=== PATIENT | male | born 1995 | race Caucasian/White ===

== ENCOUNTER 2024-09-05 09:59 | Emergency (ER) | payer OTHER ==
[2024-09-05 10:16] VITALS: TEMP 99.7
[2024-09-05] MEDS ORDERED: DUONEB 0.5-3 MG/3 ml Neb IH ONE (10:28)
--- NOTE | 2024-09-05 10:28 | ERPHSYRPT ---
- History of Present Illness Time Seen by Provider: 09/05/24 10:12 Source: patient Exam Limitations: no limitations Patient Subjective Stated Complaint: C/O cough, sorethroat, and fever since Monday Triage Nursing Assessment: Patient ambulated back to ER without difficulties. He is alert and oriented. He has a cough that is non-productive during the triage but states it is productive at home with green sputum. Skin is hot to touch. Patient does not appear SOB at this time. Physician History: Patient is a 28-year-old male whose had 3 days of cough, body aches sore throat and congestion, with more productive cough for last 2 days. Patient has not tried thing has been successful with symptomatic relief for symptoms. He was seen at an outside clinic and diagnosed with pneumonia, given prescriptions for doxycycline and benzoate Perles, but after discussion with his physician, is recommend he come to the emergency room further evaluation. Patient has not any episodes of vomiting, no abdominal pain, no back pain, no focal weakness or any issues with diarrhea, black or red stools or any blood in his urine or any new side or back pain. Timing/Duration: day(s) (3) Cough Quality/Degree: moderate, productive cough, sputum (Yellow-green) Possible Cause: no prior episodes Modifying Factors: Improves With: nothing Associated Symptoms: chills, cough, dizziness, muscle aches, nasal congestion, nasal drainage, sore throat, No chest pain/soreness, No earache, No facial pain, No headache, No lightheadedness, No shortness of breath Allergies/Adverse Reactions: No Known Drug Allergies Allergy (Verified 09/05/24 10:06) Home Medications: Insulin Aspart [NovoLOG Insulin] 100 units SQ UD 06/22/15 [History] Hx Tetanus, Diphtheria Vaccination/Date Given: Yes Hx Influenza Vaccination/Date Given: No Hx Pneumococcal Vaccination/Date Given: No Immunizations Up to Date: Yes Travel Risk - International Travel Have you traveled outside of the country in past 3 weeks: No - Emerging Infectious Disease Are you exhibiting symptoms associated with any current EIDs: Yes Symptoms: Cough: New Onset, Fever, Headaches/Body Aches/, Shortness of Breath - Review of Systems Constitutional: Fatigue, Malaise, No Fever, No Chills, No Other Eyes: No Symptoms, No Eye Pain, No Vision Changes Ears, Nose, & Throat: No Symptoms, Nose Congestion, Nose Discharge, Throat Pain, No Ear Discharge, No Mouth Pain, No Throat Swelling Respiratory: Cough, No Dyspnea Cardiac: No Chest Pain, No Edema, No Syncope Abdominal/Gastrointestinal: No Abdominal Pain, No Nausea, No Vomiting, No Diarrhea Genitourinary Symptoms: No Dysuria Musculoskeletal: No Back Pain, No Neck Pain Skin: No Rash Neurological: No Dizziness, No Focal Weakness, No Sensory Changes Psychological: No Symptoms Endocrine: No Symptoms Hematologic/Lymphatic: No Easy Bleeding, No Easy Bruising All Other Systems: Reviewed and Negative - Past Medical History Pertinent Past Medical History: Yes Neurological History: No Pertinent History ENT History: No Pertinent History Cardiac History: No Pertinent History Respiratory History: No Pertinent History Endocrine Medical History: Diabetes Type I Musculoskeletal History: No Pertinent History History: No Pertinent History Psycho-Social History: No Pertinent History Male Reproductive Disorders: No Pertinent History - Past Surgical History Past Surgical History: Yes Neuro Surgical History: No Pertinent History Cardiac: No Pertinent History Respiratory: No Pertinent History Gastrointestinal: No Pertinent History Genitourinary: No Pertinent History Musculoskeletal: No Pertinent History Male Surgical History: No Pertinent History Other Surgical History: BROKEN NOSE - Social History Smoking Status: Never smoker Exposure to second hand smoke: No Drug Use: none Patient Lives Alone: No - Social Determinants of Health Will the patient participate in the screening: Yes Do you worry about a steady place to live?: No Do you have any problems with any of the following?: No known problems In the past 12 months,have you had to go without utilities?: No Transportation Issues: No Has anyone in your support network made you feel unsafe?: No Have you or anyone in your house had to go without enough: No - Nursing Vital Signs Nursing Vital Signs: Initial Vital Signs Pulse Rate 99 H 09/05/24 10:06 Respiratory Rate 26 H 09/05/24 10:06 Blood Pressure 159/96 09/05/24 10:06 O2 Sat by Pulse Oximetry 93 L 09/05/24 10:06 Pain Scale Pain Intensity 0 - Physical Exam General Appearance: no apparent distress, alert Eye Exam: PERRL/EOMI, eyes nml inspection Ears, Nose, Throat Exam: normal ENT inspection, TMs normal, pharynx normal, moist mucous membranes Neck Exam: normal inspection, non-tender, supple, full range of motion Respiratory Exam: normal breath sounds, lungs clear, airway intact, wheezing, No respiratory distress, No diminished breath sounds, No crackles/rales, No rhonchi, No stridor, No pleural rub Cardiovascular Exam: regular rate/rhythm, normal heart sounds, normal peripheral pulses, capillary refill <2 sec Gastrointestinal/Abdomen Exam: soft, normal bowel sounds, No tenderness, No guarding, No pulsatile mass, No rebound Back Exam: normal inspection, No CVA tenderness, No vertebral tenderness Extremity Exam: normal inspection, normal range of motion Neurologic Exam: alert, oriented x 3, cooperative, 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 as tested, normal mood/affect, sensation nml, No motor deficits Skin Exam: normal color, warm, dry, No rash Lymphatic Exam: No adenopathy SpO2 Interpretation: normal SpO2: 95 O2 Delivery: Room Air - Course Nursing assessment & vital signs reviewed: Yes EKG Interpreted by Me: RATE (107), Sinus Rhythm, NORMAL AXIS, NORMAL INTERVALS, NORMAL QRS, NORMAL ST-T - Radiology Exams Chest X-ray Interpretation: Interpreted by me, Reviewed by me, Teleradiologist Report, No Fracture, No Pneumonia, No Pneumothorax, Nml Heart Size, No Infiltrates, Other (Left lower lobe atelectasis base and/or scarring per radiologist interpretation) Ordered Tests: Active Orders 24 hr Category Date Time Status Physician Practice Administrator STAT Care 09/05/24 10:20 Active EKG-ER Only STAT Care 09/05/24 10:18 Active IV Insertion STAT Care 09/05/24 10:18 Active CHEST 1 VIEW (PORTABLE) Stat Exams 09/05/24 10:20 Completed BLOOD CULTURE Stat Lab 09/05/24 10:36 Received CBC W DIFF Stat Lab 09/05/24 10:36 Completed CMP Stat Lab 09/05/24 10:36 Completed CULTURE,URINE Stat Lab 09/05/24 10:40 Received LIPASE Stat Lab 09/05/24 10:36 Completed Lactic Acid Stat Lab 09/05/24 10:35 Completed MAGNESIUM Stat Lab 09/05/24 10:36 Completed PROCALCITONIN Stat Lab 09/05/24 10:36 Completed PROTIME WITH INR Stat Lab 09/05/24 10:36 Completed UA W/RFX UR CULTURE Stat Lab 09/05/24 10:40 Completed VENOUS BLOOD GAS Stat Lab 09/05/24 10:35 Completed Respiratory Therapy Assessment DAILY RT 09/05/24 10:35 Active Medication Summary Generic Name Dose Route Start Last Admin Trade Name Samara PRN Reason Stop Dose Admin Magnesium Sulfate/Water 2 gm in 50 mls @ 100 mls/hr 09/05/24 11:53 09/05/24 12:15 Magnesium Sulf 2 G/50 Ml Bag IV 09/05/24 12:22 100 mls/hr ONCE ONE 100 mls/hr Administration Discontinued Medications Generic Name Dose Route Start Last Admin Trade Name Samara PRN Reason Stop Dose Admin Acetaminophen 1,000 mg 09/05/24 10:24 09/05/24 10:45 Acetaminophen 500 Mg Tablet PO 09/05/24 10:25 Not Given STAT STA Acetaminophen Confirm 09/05/24 10:42 Acetaminophen 325 Mg Tablet Administered 09/05/24 10:43 Dose 975 mg .ROUTE .STK-MED ONE Acetaminophen 975 mg 09/05/24 10:46 09/05/24 10:46 Acetaminophen 325 Mg Tablet PO 09/05/24 10:47 975 mg STAT STA Administration Albuterol/Ipratropium 3 ml 09/05/24 10:22 09/05/24 10:50 Ipratropium/Albuterol Sulfate 3 Ml Ampul.Neb IH 09/05/24 10:23 3 ml STAT ONE Administration Albuterol/Ipratropium Confirm 09/05/24 10:28 Ipratropium/Albuterol Sulfate 3 Ml Ampul.Neb Administered 09/05/24 10:29 Dose 3 ml IH .STK-MED ONE Doxycycline Hyclate 100 mg 09/05/24 10:25 09/05/24 10:45 Doxycycline Hyclate 100 Mg Tablet PO 09/05/24 10:26 100 mg STAT ONE Administration Doxycycline Hyclate Confirm 09/05/24 10:42 Doxycycline Hyclate 100 Mg Tablet Administered 09/05/24 10:43 Dose 100 mg .ROUTE .STK-MED ONE Sodium Chloride 1,000 mls @ 999 mls/hr 09/05/24 10:18 09/05/24 11:50 Sodium Chloride 0.9% 1000 Ml IV 09/05/24 11:18 Infused .Q1H1M STA Infusion Ceftriaxone Sodium 2 gm in 100 mls @ 200 mls/hr 09/05/24 10:18 09/05/24 11:21 Rocephin 2 Gm/100 Ml Nacl IV 09/05/24 10:47 Infused STAT ONE Infusion Sodium Chloride Confirm 09/05/24 10:43 Sodium Chloride 0.9% 1000 Ml Administered 09/05/24 10:44 Dose 1,000 mls @ ud .ROUTE .STK-MED ONE Ceftriaxone Sodium Confirm 09/05/24 10:43 Rocephin 2 Gm/100 Ml Nacl Administered 09/05/24 10:44 Dose 2 gm in 100 mls @ ud IV .STK-MED ONE Magnesium Sulfate/Water Confirm 09/05/24 12:14 Magnesium Sulf 2 G/50 Ml Bag Administered 09/05/24 12:15 Dose 2 gm in 50 mls @ ud IV .STK-MED ONE Lab/Rad Data: Laboratory Result Diagrams 09/05/24 10:36 09/05/24 10:36 Laboratory Results 09/05/24 09/05/24 09/05/24 Range/Units Unknown 10:40 10:36 WBC (4.23-9.07) x10^3/uL RBC (4.63-6.08) x10^6/uL Hgb (13.7-17.5) g/dL Hct (40.1-51.0) % MCV (79.0-92.2) fL MCH (25.7-32.2) pg MCHC (32.3-36.5) g/dL RDW (11.6-14.4) % Plt Count (163-337) x10^3/uL MPV (9.4-12.4) fL Gran % (34.0-67.9) % Immature Gran % (Auto) (0.001-0.429) % Nucleat RBC Rel Count (0.00-0.2) % Eos # (Auto) (0.04-0.54) x10^3/uL Immature Gran # (Auto) (0.001-0.031) x10^3u/L Absolute Lymphs (auto) (1.32-3.57) x10^3/uL Absolute Monos (auto) (0.30-0.82) x10^3/uL Absolute Nucleated RBC (0.00-0.012) x10^3u/L Lymphocytes % (21.8-53.1) % Monocytes % (5.3-12.2) % Eosinophils % (0.8-7.0) % Basophils % (0.2-1.2) % Absolute Granulocytes (1.78-5.38) x10^3/uL Basophils # (0.01-0.08) x10^3/uL PT 11.6 (9.4-12.5) SECONDS INR 1.07 (0.8-3.0) pO2/FiO2 Ratio % VBG pH (7.32-7.42) VBG pCO2 at Pat Temp (42-55) mm/Hg VBG pO2 at Pat Temp (25-40) mm/Hg VBG HCO3 (22-28) meq/L VBG O2 Sat ([place]) (95-100) VBG Base Excess (-2.0-2.0) VBG Hemoglobin VBG Carboxyhemoglobin (0.0-6.9) % T HGB POC Potassium (3.5-5.1) Sodium (135-145) mmol/L Potassium (3.5-5.1) mmol/L Chloride (98-107) mmol/L Carbon Dioxide (22-30) mmol/L Anion Gap (5-15) MEQ/L BUN (9-20) mg/dL Creatinine (0.66-1.25) mg/dL Estimated GFR ML/MIN Glucose (74-106) mg/dL Lactic Acid (0.4-2.0) Calcium (8.4-10.2) mg/dL Magnesium (1.6-2.3) mg/dL Total Bilirubin (0.2-1.3) mg/dL AST (17-59) U/L ALT (0-50) U/L Alkaline Phosphatase (38-126) U/L Serum Total Protein (6.3-8.2) g/dL Albumin (3.5-5.0) g/dL Lipase (23-300) U/L Procalcitonin (0.030-0.080) ng/mL Urine Color Yellow (Yellow) Urine Appearance Clear (Clear) Urine pH 6.5 (4.6-8.0) Ur Specific [place] 1.020 (1.005-1.030) Urine Protein Trace A (Negative) Urine Glucose (UA) 100 A (Negative) mg/dL Urine Ketones Trace A (Negative) Urine Blood Negative (Negative) Urine Nitrite Negative (Negative) Urine Bilirubin Negative (Negative) Urine Urobilinogen 1.0 A (0.2) mg/dL Ur Leukocyte Esterase Negative (Negative) U Hyaline Cast (Auto) NONE SEEN (0-2) /LPF Urine Microscopic RBC 0-2 (0-5) /HPF Urine Microscopic WBC 0-2 (0-5) /HPF Ur Epithelial Cells None Seen (None Seen) /HPF Urine Bacteria None Seen (None Seen) /HPF Urine Culture Reflexed ORDERED SEPARATELY (NO) Influenza Type A Ag NEGATIVE (NEGATIVE) Influenza Type B Ag POSITIVE A (NEGATIVE) RSV (PCR) NEGATIVE (NEGATIVE) SARS-CoV-2 (PCR) NEGATIVE (NEGATIVE) Group A Strep Antibody NOT DETECTED (NEGATIVE) 09/05/24 09/05/24 09/05/24 Range/Units 10:36 10:36 10:35 WBC 3.3 L (4.23-9.07) x10^3/uL RBC 5.68 (4.63-6.08) x10^6/uL Hgb 15.6 (13.7-17.5) g/dL Hct 47.4 (40.1-51.0) % MCV 83.5 (79.0-92.2) fL MCH 27.5 (25.7-32.2) pg MCHC 32.9 (32.3-36.5) g/dL RDW 12.7 (11.6-14.4) % Plt Count 188 (163-337) x10^3/uL MPV 10.0 (9.4-12.4) fL Gran % 58.9 (34.0-67.9) % Immature Gran % (Auto) 0.6 H (0.001-0.429) % Nucleat RBC Rel Count 0.0 (0.00-0.2) % Eos # (Auto) 0.01 L (0.04-0.54) x10^3/uL Immature Gran # (Auto) 0.02 (0.001-0.031) x10^3u/L Absolute Lymphs (auto) 0.78 L (1.32-3.57) x10^3/uL Absolute Monos (auto) 0.55 (0.30-0.82) x10^3/uL Absolute Nucleated RBC 0.00 (0.00-0.012) x10^3u/L Lymphocytes % 23.4 (21.8-53.1) % Monocytes % 16.5 H (5.3-12.2) % Eosinophils % 0.3 L (0.8-7.0) % Basophils % 0.3 (0.2-1.2) % Absolute Granulocytes 1.96 (1.78-5.38) x10^3/uL Basophils # 0.01 (0.01-0.08) x10^3/uL PT (9.4-12.5) SECONDS INR (0.8-3.0) pO2/FiO2 Ratio % VBG pH (7.32-7.42) VBG pCO2 at Pat Temp (42-55) mm/Hg VBG pO2 at Pat Temp (25-40) mm/Hg VBG HCO3 (22-28) meq/L VBG O2 Sat ([place]) (95-100) VBG Base Excess (-2.0-2.0) VBG Hemoglobin VBG Carboxyhemoglobin (0.0-6.9) % T HGB POC Potassium (3.5-5.1) Sodium 137 (135-145) mmol/L Potassium 3.9 (3.5-5.1) mmol/L Chloride 101 (98-107) mmol/L Carbon Dioxide 22 (22-30) mmol/L Anion Gap 17.5 H (5-15) MEQ/L BUN 10 (9-20) mg/dL Creatinine 0.86 (0.66-1.25) mg/dL Estimated GFR 121.7 ML/MIN Glucose 189 H (74-106) mg/dL Lactic Acid 1.1 (0.4-2.0) Calcium 9.0 (8.4-10.2) mg/dL Magnesium 1.5 L (1.6-2.3) mg/dL Total Bilirubin 0.70 (0.2-1.3) mg/dL AST 30 (17-59) U/L ALT 30 (0-50) U/L Alkaline Phosphatase 78 (38-126) U/L Serum Total Protein 8.0 (6.3-8.2) g/dL Albumin 4.6 (3.5-5.0) g/dL Lipase 36 (23-300) U/L Procalcitonin 0.118 H (0.030-0.080) ng/mL Urine Color (Yellow) Urine Appearance (Clear) Urine pH (4.6-8.0) Ur Specific [place] (1.005-1.030) Urine Protein (Negative) Urine Glucose (UA) (Negative) mg/dL Urine Ketones (Negative) Urine Blood (Negative) Urine Nitrite (Negative) Urine Bilirubin (Negative) Urine Urobilinogen (0.2) mg/dL Ur Leukocyte Esterase (Negative) U Hyaline Cast (Auto) (0-2) /LPF Urine Microscopic RBC (0-5) /HPF Urine Microscopic WBC (0-5) /HPF Ur Epithelial Cells (None Seen) /HPF Urine Bacteria (None Seen) /HPF Urine Culture Reflexed (NO) Influenza Type A Ag (NEGATIVE) Influenza Type B Ag (NEGATIVE) RSV (PCR) (NEGATIVE) SARS-CoV-2 (PCR) (NEGATIVE) Group A Strep Antibody (NEGATIVE) 09/05/24 Range/Units 10:35 WBC (4.23-9.07) x10^3/uL RBC (4.63-6.08) x10^6/uL Hgb (13.7-17.5) g/dL Hct (40.1-51.0) % MCV (79.0-92.2) fL MCH (25.7-32.2) pg MCHC (32.3-36.5) g/dL RDW (11.6-14.4) % Plt Count (163-337) x10^3/uL MPV (9.4-12.4) fL Gran % (34.0-67.9) % Immature Gran % (Auto) (0.001-0.429) % Nucleat RBC Rel Count (0.00-0.2) % Eos # (Auto) (0.04-0.54) x10^3/uL Immature Gran # (Auto) (0.001-0.031) x10^3u/L Absolute Lymphs (auto) (1.32-3.57) x10^3/uL Absolute Monos (auto) (0.30-0.82) x10^3/uL Absolute Nucleated RBC (0.00-0.012) x10^3u/L Lymphocytes % (21.8-53.1) % Monocytes % (5.3-12.2) % Eosinophils % (0.8-7.0) % Basophils % (0.2-1.2) % Absolute Granulocytes (1.78-5.38) x10^3/uL Basophils # (0.01-0.08) x10^3/uL PT (9.4-12.5) SECONDS INR (0.8-3.0) pO2/FiO2 Ratio 21.0 % VBG pH 7.45 H (7.32-7.42) VBG pCO2 at Pat Temp 35 L (42-55) mm/Hg VBG pO2 at Pat Temp 37 (25-40) mm/Hg VBG HCO3 24.3 (22-28) meq/L VBG O2 Sat ([place]) 72.1 L (95-100) VBG Base Excess 0.8 (-2.0-2.0) VBG Hemoglobin 16.2 VBG Carboxyhemoglobin 2.4 (0.0-6.9) % T HGB POC Potassium 4.0 (3.5-5.1) Sodium (135-145) mmol/L Potassium (3.5-5.1) mmol/L Chloride (98-107) mmol/L Carbon Dioxide (22-30) mmol/L Anion Gap (5-15) MEQ/L BUN (9-20) mg/dL Creatinine (0.66-1.25) mg/dL Estimated GFR ML/MIN Glucose (74-106) mg/dL Lactic Acid (0.4-2.0) Calcium (8.4-10.2) mg/dL Magnesium (1.6-2.3) mg/dL Total Bilirubin (0.2-1.3) mg/dL AST (17-59) U/L ALT (0-50) U/L Alkaline Phosphatase (38-126) U/L Serum Total Protein (6.3-8.2) g/dL Albumin (3.5-5.0) g/dL Lipase (23-300) U/L Procalcitonin (0.030-0.080) ng/mL Urine Color (Yellow) Urine Appearance (Clear) Urine pH (4.6-8.0) Ur Specific [place] (1.005-1.030) Urine Protein (Negative) Urine Glucose (UA) (Negative) mg/dL Urine Ketones (Negative) Urine Blood (Negative) Urine Nitrite (Negative) Urine Bilirubin (Negative) Urine Urobilinogen (0.2) mg/dL Ur Leukocyte Esterase (Negative) U Hyaline Cast (Auto) (0-2) /LPF Urine Microscopic RBC (0-5) /HPF Urine Microscopic WBC (0-5) /HPF Ur Epithelial Cells (None Seen) /HPF Urine Bacteria (None Seen) /HPF Urine Culture Reflexed (NO) Influenza Type A Ag (NEGATIVE) Influenza Type B Ag (NEGATIVE) RSV (PCR) (NEGATIVE) SARS-CoV-2 (PCR) (NEGATIVE) Group A Strep Antibody (NEGATIVE) - Progress Progress: improved Air Movement: good Progress Note: 09/05/24 11:25 Patient feels subjectively better after the DuoNeb treatment and he has improved airflow throughout 09/05/24 12:12 Patient feels better and his pulse was in the 90s in sinus rhythm on the case monitor, and after discussion of the results of most probable cause of symptoms and finding on the chest x-ray, patient prefers to be discharged home with treatments as an outpatient and to follow-up as an outpatient. He understands and come back to the emergency room anytime if he has any new confusion, new increased work of breathing, new shortness of breath, new productive cough, or significant elevated blood sugars as he has insulin and glucose monitoring at home he states 09/05/24 12:32 Patient is a 28-year-old male with a history of insulin-dependent diabetes who was referred to the emergency room from outside clinic due to concerns for pneumonia causing his symptoms are last 3 days, but his symptomatology is consistent more with a viral process, and the signs that they were concerned about on his examination and chest x-ray were consistent with atelectasis more than pneumonia. Patient did have a slightly decreased white blood cell count and mild tachycardia with first came in triggering SIRS criteria, but this all could be explained from his positive influenza B swab as the rest of his labs including his venous blood gas and his CMP appear to be within normal limits and he did not appear to be acidotic on his secondary workup and had no oxygen or ventilatory requirements during his time in the emergency department. Patient was hydrated with a liter of IV fluids, started with Rocephin and doxycycline due to concerns for pneumonia potentially causing sepsis, but at this time I do not feel he requires any further antibiotics as his symptoms are from the influenza B and we will treat him with albuterol inhaler or DuoNeb treatments as he had a good response here in the emergency department, and we will do either Xofluza or Tamiflu for his influenza treatment since he is within the window as well as Motrin, Atrovent nasal spray, and Promethazine DM cough syrup to help with symptomatic relief. Patient understands return back to the nearest emerge ncy department if he has any altered mental status, increased work of breathing, tachypnea, pleuritic type chest pain, new back pain, new productive cough, new hemoptysis, new uncontrollable nausea, vomiting or diarrhea, or any other concerning signs or symptoms that were not present at today's emergency room visit for immediate reevaluation in the nearest emergency department. Patient signed at his preference to be treated as an outpatient and I discussed the patient with his physician and we are in agreement to doing a trial of outpatient therapy and he will return back to the emergency room if he is any worse at any time. Blood Culture(s) Obtained: Yes Antibiotics given: Yes Discussed with Dr.: Riley (At 12:15 PM on September 05, 2024, discussed the patient with his physician, Dr. Rivero, and reviewed presentation, evaluation, findings and at this time patient can be treated as an outpatient Dr. Rivero agreed and will follow the patient as an outpatient) Will see patient in: other Counseled pt/family regarding: lab results, diagnosis, rad results Medical Desision Making - Discussion of managment Care discussed with:: PCP Reviewed:: Test results, Need for additional workup Agreed on:: Treatment plan, need for follow-up Will see patient: In office - Diagnostic Testing Diagnostic test were ordered, analyzed, and reviewed by me: Yes Radiological Interpretation: Interpreted by me, Reviewed by me, Other (Reviewed radiologist report) - Risk of complications Low Risk: Low risk of morbidity from additional dx testing or treatment The pt has a mod risk of morbidity or mortality based on: Need for prescription drug management - Departure Departure Disposition: Home Clinical Impression: Influenza B, Elevated blood pressure reading without diagnosis of hypertension Acute bronchitis Qualifiers: Bronchitis organism: other organism Qualified Code(s): J20.8 - Acute bronchitis due to other specified organisms Leukopenia Qualifiers: Leukopenia type: unspecified Qualified Code(s): D72.819 - Decreased white blood cell count, unspecified Condition: Good Critical Care Time: Yes Critical Care Time(excluding separately billable procedures): Critical 30-74 mins Referrals: FAMILIA RIVERO MD [ACTIVE STAFF] - Follow up with PCP 4 days Instructions: Cough, Adult (DC), Flu, Adult ED, Acute bronchitis in adults, Hypomagnesemia Additional Instructions: Return back to the nearest emergency department for any new increased work of breathing, any confusion or altered mental status, any new productive cough, new chest pain, new abdominal pain, any uncontrolled nausea vomiting or diarrhea, new abdominal pain, new back pain, new pain on breathing or any other concerning signs or symptoms that were not present at today's emergency room visit for immediate reevaluation in the nearest emergency department Forms: Work/School Release Form Prescriptions: Albuterol/Ipratropium 3ml Neb* [DUONEB 0.5-3 MG/3 ml Neb] 3 ml NEBULIZE Q4H PRN PRN #1 PRN Reason: Wheezing/Chest Congestion Ipratropium [place] 2 sprays NS Q8H PRN PRN 3 Days #1 PRN Reason: congestion/runny nose Oseltamivir 75 mg [Tamiflu 75MG Capsule] 75 mg PO BID #10 cap Baloxavir Marboxil [Xofluza] 80 mg PO DAILY 1 Days #4 tablet
[2024-09-05 10:40] LABS: VBG BASE EXCESS 0.8 (-2.0-2.0); VBG CARBOXYHEMOGLOBIN 2.4 % T HGB (0.0-6.9); VBG HCO3- 24.3 meq/L (22-28); VBG HEMOGLOBIN 16.2; VBG O2 SATURATION 72.1 (95-100); VBG pH 7.45 (7.32-7.42)
[2024-09-05] MEDS ORDERED: Vibramycin 100 MG ONE (10:42)
[2024-09-05] MEDS ORDERED: TYLENOL 325 MG ONE (10:42)
[2024-09-05] MEDS ORDERED: ROCEPHIN 2 GM/100 ML NACL 2 GM/100 ML IVPB IV ONE (10:43)
[2024-09-05] MEDS ORDERED: Sodium Chloride 0.9% 1000 ML 1,000 ML ONE (10:43)
[2024-09-05] MEDS: Vibramycin 100 MG PO ONE (10:45)
[2024-09-05] MEDS: TYLENOL EXTRA STRENGTH 500 MG PO STA (10:45)
[2024-09-05] MEDS: TYLENOL 325 MG PO STA (10:46)
[2024-09-05] MEDS: Sodium Chloride 0.9% 1000 ML 1,000 ML IV STA (10:47)
[2024-09-05] MEDS: ROCEPHIN 2 GM/100 ML NACL 2 GM/100 ML IVPB IV ONE (10:48)
[2024-09-05 10:50] LABS: Absolute Neutrophil Ct (ANC) 1.96 x10^3/uL (1.78-5.38); BASOPHIL % 0.3 % (0.2-1.2); Basophil (Absolute #) 0.01 x10^3/uL (0.01-0.08); Eosinophil % 0.3 % (0.8-7.0); Eosinophil (Absolute #) 0.01 x10^3/uL (0.04-0.54); Hematocrit 47.4 % (40.1-51.0); Hemoglobin 15.6 g/dL (13.7-17.5); IMMATURE GRAN # 0.02 x10^3u/L (0.001-0.031); IMMATURE GRAN % 0.6 % (0.001-0.429); Lymphocyte (Absolute #) 0.78 x10^3/uL (1.32-3.57); Lymphocytes % 23.4 % (21.8-53.1); Mean Cell Volume 83.5 fL (79.0-92.2); Mean Corpuscular Hemoglobin 27.5 pg (25.7-32.2); Mean Corpuscular Hgb Concent. 32.9 g/dL (32.3-36.5); Monocyte (Absolute #) 0.55 x10^3/uL (0.30-0.82); Monocytes % 16.5 % (5.3-12.2); Neutrophil % 58.9 % (34.0-67.9); Platelet Count 188 x10^3/uL (163-337); Red Blood Count 5.68 x10^6/uL (4.63-6.08); Red Cell Distribution Width 12.7 % (11.6-14.4); White Blood Count 3.3 x10^3/uL (4.23-9.07)
[2024-09-05] MEDS: DUONEB 0.5-3 MG/3 ml Neb IH ONE (10:50)
--- NOTE | 2024-09-05 11:04 | XRAY ---
Indication: Cough. Comparison: None Portable chest demonstrates minimal left base subsegmental atelectasis/scarring. Remaining heart, right lung, and bony thorax normal.
[2024-09-05 11:06] LABS: INR 1.07 (0.8-3.0); PROTIME 11.6 SECONDS (9.4-12.5)
[2024-09-05 11:09] LABS: Appearance Clear (Clear); Bacteria None Seen /HPF (None Seen); Bilirubin Negative (Negative); Blood Negative (Negative); Epithelial Cells None Seen /HPF (None Seen); Glucose, Urine 100 mg/dL (Negative); Hyaline Casts NONE SEEN /LPF (0-2); Ketones Trace (Negative); Leukocyte Esterase Negative (Negative); Nitrite Negative (Negative); Ph 6.5 (4.6-8.0); Protein,Urine Dip Trace (Negative); RBC 0-2 /HPF (0-5); WBC 0-2 /HPF (0-5)
[2024-09-05 11:27] LABS: ALBUMIN 4.6 g/dL (3.5-5.0); ANION GAP 17.5 MEQ/L (5-15); BILIRUBIN,TOTAL 0.7 mg/dL (0.2-1.3); Creatinine 1 0.86 mg/dL (0.66-1.25); EST GLOMERULAR FILTRATION RATE 121.7 ML/MIN; MAGNESIUM 1.5 mg/dL (1.6-2.3); PROCALCITONIN 0.118 ng/mL (0.030-0.080); Potassium 3.9 mmol/L (3.5-5.1)
[2024-09-05 11:29] LABS: Group A Strep NOT DETECTED (NEGATIVE)
[2024-09-05 11:40] LABS: INFLUENZA A NEGATIVE (NEGATIVE); RESPIRATORY SYNCTIAL VIRUS NEGATIVE (NEGATIVE); SARS-CoV-2 Xpert Express NEGATIVE (NEGATIVE)
[2024-09-05 12:05] LABS: INFLUENZA B POSITIVE (NEGATIVE)
[2024-09-05] MEDS ORDERED: MAGNESIUM SULF 2 G/50 ML BAG 2 GM/50 ML PIGGYBACK IV ONE (12:14)
[2024-09-05] MEDS: MAGNESIUM SULF 2 G/50 ML BAG 2 GM/50 ML PIGGYBACK IV ONE (12:15)
[2024-09-05 12:17] VITALS: O2SAT 95
[2024-09-05 12:54] VITALS: BP 135/88; PULSE 68; RESP 20
== END 2024-09-05 12:54 | disposition home or self-care (01) ==
LOC: ED 09:59
DX: J10.1 Influenza due to other identified influenza virus with other respiratory manifestations (principal); R03.0 Elevated blood-pressure reading, without diagnosis of hypertension; J20.8 Acute bronchitis due to other specified organisms; D72.819 Decreased white blood cell count, unspecified; R05.1 Acute cough; M79.10 Myalgia, unspecified site; E10.9 Type 1 diabetes mellitus without complications; Z79.4 Long term (current) use of insulin; Z79.899 Other long term (current) drug therapy
CPT/HCPCS: 0241U; 36000; 36415; 71045; 80053; 81001; 82805; 83605; 83690; 83735; 84145; 85025; 85610; 87040; 87086; 87651; 93005; 93041; 94640; 96360; 96365; 96367; 99284; 99291; J0696; A9270-GY; J3475